=== PATIENT | female | born 1980 | race Caucasian/White ===

== ENCOUNTER 2020-08-03 18:06 | Emergency (ER) | payer OTHER ==
[~2020-08-03 18:06] MED LIST: DEPAKOTE ER500 MG PO; KEPPRA500 MG PO; TEGRETOL 200 M200 MG PO; VIMPAT100 MG PO; VIMPAT200 MG PO
== END 2020-08-03 18:23 | disposition left against medical advice (07) ==
LOC: ER1 18:06
DX: Z53.21 Procedure and treatment not carried out due to patient leaving prior to being seen by health care provider (principal)

== ENCOUNTER 2020-08-06 17:23 | Emergency (ER) | payer OTHER ==
[2020-08-06] MEDS ORDERED: VOLTAREN GEL 1 % TOP (18:43)
== END 2020-08-06 18:46 | disposition home or self-care (01) ==
LOC: ER1 17:23
DX: M25.512 Pain in left shoulder (principal); R51.9 Headache, unspecified; I10 Essential (primary) hypertension; F17.200 Nicotine dependence, unspecified, uncomplicated; G40.909 Epilepsy, unspecified, not intractable, without status epilepticus; Z88.0 Allergy status to penicillin
CPT/HCPCS: 71045; 73030; 99283